=== PATIENT | female | born 1940 | race Caucasian/White ===

== ENCOUNTER 2018-04-13 11:26 | Emergency (ER) | payer MEDICARE, MEDICAID ==
[~2018-04-13] VITALS: Ht 172.7 cm; Wt 72.6 kg
[~2018-04-13 11:26] MED LIST: AMLO10TA6 PO; BUDE10.2 IH
--- NOTE | 2018-04-13 11:28 | NUR ---
BBRA FROM HOME C/O FEELING WEAK AFTER PLAYING [employer]. PLACED ON MONITOR. PT ALERT ABLE TO MAKE NEEDS KNOWN.
--- NOTE | 2018-04-13 11:58 | NUR ---
R AC 20G PLACED PATENT AND FLUSHING WELL. LABS DRAWN SENT TO LAB
[2018-04-13 12:19] LABS: BASOPHILS % (AUTO) 0.7 % (0.0-2.0); EOSINOPHILS % (AUTO) 10.2 % (0.0-6.0); HEMATOCRIT 39 % (33-45); HEMOGLOBIN 13.1 g/dL (11.5-14.8); LYMPHOCYTES # (AUTO) 1.4 /CMM (0.8-4.8); LYMPHOCYTES % (AUTO) 28.3 % (20.0-44.0); MEAN CORPUSCULAR HGB CONC 34 g/dl (31.0-36.0); MEAN CORPUSCULAR VOLUME 86 fL (82-100); MONOCYTES # (AUTO) 0.4 /CMM (0.1-1.30); MONOCYTES % (AUTO) 8.3 % (2.0-12.0); NEUTROPHILS # (AUTO) 2.8 /CMM (1.8-8.9); NEUTROPHILS % (AUTO) 52.5 % (43.0-81.0); PLATELET COUNT (AUTO) 248 /CMM (150-450); RDW COEFFICIENT OF VARIATION 14.1 (11.5-15.0); RED BLOOD CELL COUNT(AUTO) 4.51 MIL/uL (4.0-5.2); WHITE BLOOD COUNT (AUTO) 5.1 K/uL (4.3-11.0)
[2018-04-13 12:28] LABS: INR 0.92 (0.85-1.15)
[2018-04-13 12:29] LABS: ALANINE AMINOTRANSFERASE 19 U/L (12-78); ALKALINE PHOSPHATASE 69 U/L (46-116); ASPARTATE AMINOTRANSFERASE 21 U/L (15-37); BILIRUBIN,TOTAL 0.3 mg/dL (0.2-1.0); CALCIUM, SERUM 9.4 mg/dL (8.5-10.1); CARBON DIOXIDE 24 mmol/L (21-32); CHLORIDE 105 mmol/L (98-107); CREATININE 1.1 mg/dL (0.6-1.3); GLUCOSE 121 mg/dL (74-106); POTASSIUM 3.9 mmol/L (3.5-5.1); SODIUM SERUM 137 mmol/L (136-145); TOTAL PROTEIN, SERUM 8.1 g/dL (6.4-8.2); UREA NITROGEN, BLOOD 20 mg/dL (7-18)
[2018-04-13 12:31] LABS: TROPONIN I < 0.017 ng/mL (0.00-0.056)
[2018-04-13 13:59] LABS: APPEARANCE,URINE Clear (CLEAR); BILIRUBIN,URINE Negative (NEGATIVE); BLOOD, URINE Negative Ery/uL (NEGATIVE); COLOR,URINE Yellow (YELLOW); KETONES,URINE Negative (NEGATIVE); LEUKOCYTE ESTERASE ,URINE Negative (NEGATIVE); NITRITE, URINE Negative (NEGATIVE); PROTEIN,URINE Negative (NEGATIVE); UGLUCOSE Negative (NEGATIVE); UROBILINOGEN,URINE 0.2 EU/dL (0.2)
--- NOTE | 2018-04-13 14:00 | NUR ---
Patient discharged to home in stable condition. Written and verbal after care instructions given. Patient verbalizes understanding of instruction.
--- NOTE | 2018-04-13 14:00 | NUR ---
IV removed. Catheter intact and site benign. Pressure and 4x4 applied to site. No bleeding noted.
[2018-04-13 14:01] VITALS: BP 135/78
== END 2018-04-13 14:06 | disposition home or self-care (01) ==
LOC: ER 11:27
DX: R53.1 Weakness (principal); E11.9 Type 2 diabetes mellitus without complications; I10 Essential (primary) hypertension; I70.0 Atherosclerosis of aorta; J45.909 Unspecified asthma, uncomplicated; Z88.8 Allergy status to other drugs, medicaments and biological substances
CPT/HCPCS: 36415; 71045; 80053; 81001; 84484; 85025; 85730; 93005; 99285; A4606; 81000-TC; Z7610

== ENCOUNTER 2019-02-11 19:14 | Emergency (ER) | payer MEDICARE, MEDICAID ==
[~2019-02-11] VITALS: Ht 152.4 cm; Wt 71.7 kg
[~2019-02-11 19:14] MED LIST changes: -AMLO10TA6 PO; +AMLO10TA7 PO
[2019-02-11 19:28] VITALS: BP 153/75
[2019-02-11] MEDS ORDERED: KETOROLAC TROMETHAMINE 15 MG/ML VIAL ONE (19:47)
[2019-02-11] MEDS ORDERED: KETOROLAC TROMETHAMINE INJ 60 MG/2 ML VIAL IM ONE (20:00)
[2019-02-11] MEDS ORDERED: KETOROLAC TROMETHAMINE INJ 30 MG/ML VIAL IV ONE (20:00)
[2019-02-11] MEDS ORDERED: ONDANSETRON 4 MG TAB.RAPDIS SL ONE (21:00)
[2019-02-11] MEDS ORDERED: HYDROCODONE/APAP 5/325MG 1 EACH TABLET PO ONE (21:00)
[2019-02-11] MEDS ORDERED: HYDROCODONE/APAP 5/325MG 1 EACH TABLET ONE (21:01)
[2019-02-11] MEDS ORDERED: ONDANSETRON 4 MG TAB.RAPDIS ONE (21:02)
== END 2019-02-11 21:15 | disposition home or self-care (01) ==
LOC: ER 19:17
DX: M54.16 Radiculopathy, lumbar region (principal); E11.9 Type 2 diabetes mellitus without complications; I10 Essential (primary) hypertension; Z88.6 Allergy status to analgesic agent
CPT/HCPCS: 72131; 96372; 99284; J1885; Q0162

== ENCOUNTER 2019-03-08 04:18 | Emergency (ER) | payer MEDICARE, MEDICAID ==
[~2019-03-08] VITALS: Ht 152.4 cm; Wt 68.0 kg
[2019-03-08 04:25] VITALS: BP 196/85
[2019-03-08] MEDS ORDERED: MORPHINE SULFATE INJ 10 MG/ML DISP.SYRIN ONE (04:58)
[2019-03-08] MEDS ORDERED: MORPHINE SULFATE INJ 4 MG/ML DISP.SYRIN IM ONE (05:00)
--- NOTE | 2019-03-08 05:20 | NUR ---
PT REC'D MORPHINE IM. PT WAS INSTRUCTED NOT TO DRIVE HOME. PT WILL TAKE A TAXI HOME. AWARE. CALLED NURSING TOY MECHANIC RE: TAXI VOUCHER.
--- NOTE | 2019-03-08 05:33 | NUR ---
DR FARLEY IS AWARE OF PT'S BP PRIOR TO DC. PT OK'D TO BE D/C'D HOME. 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 PT'S PAIN IS 8/10. PT TO F/U WITH PMD RE: ELEVATED BP/HTN
== END 2019-03-08 05:34 | disposition home or self-care (01) ==
LOC: ER 04:18
DX: B02.29 Other postherpetic nervous system involvement (principal); G89.29 Other chronic pain; I10 Essential (primary) hypertension; E11.9 Type 2 diabetes mellitus without complications; Z88.6 Allergy status to analgesic agent
CPT/HCPCS: 96372; 99283; J2270

== ENCOUNTER 2019-03-11 09:24 | Emergency (ER) | payer MEDICARE, MEDICAID ==
[~2019-03-11] VITALS: Ht 152.4 cm; Wt 74.8 kg
[2019-03-11 09:30] VITALS: BP 145/75
[2019-03-11] MEDS ORDERED: GABAPENTIN 300 MG CAPSULE ONE (09:56)
[2019-03-11] MEDS ORDERED: GABAPENTIN 100 MG CAPSULE PO ONE (10:00)
--- NOTE | 2019-03-11 10:04 | NUR ---
Rx provided, Patient discharged to home in stable condition. Written and verbal after care instructions given. Patient verbalizes understanding of instruction.
== END 2019-03-11 10:05 | disposition home or self-care (01) ==
LOC: ER 09:26
DX: M79.2 Neuralgia and neuritis, unspecified (principal); I10 Essential (primary) hypertension; E11.9 Type 2 diabetes mellitus without complications; Z60.2 Problems related to living alone; Z88.6 Allergy status to analgesic agent

== ENCOUNTER 2023-04-05 18:26 | Inpatient (IN) | payer OTHER ==
[~2023-04-05] VITALS: Ht 152.4 cm; Wt 64.4 kg
[~2023-04-05 18:26] MED LIST changes: +AMLO-213 PO; -AMLO10TA7 PO
[2023-04-05] MEDS ORDERED: IV NS 0.9% 1,000 ML BAG IV ONE (20:30)
[2023-04-05 21:37] LABS: BASOPHILS % (AUTO) 0.2 % (0.0-2.0); EOSINOPHILS % (AUTO) 0.2 % (0.0-6.0); HEMATOCRIT 36 % (33-45); HEMOGLOBIN 12.6 g/dL (11.5-14.8); LYMPHOCYTES # (AUTO) 0.7 K/uL (0.8-4.8); LYMPHOCYTES % (AUTO) 10.2 % (20.0-44.0); MEAN CORPUSCULAR HGB CONC 35 g/dl (31.0-36.0); MEAN CORPUSCULAR VOLUME 83 fL (82-100); MONOCYTES # (AUTO) 0.6 K/uL (0.1-1.30); MONOCYTES % (AUTO) 9.3 % (2.0-12.0); NEUTROPHILS # (AUTO) 5.3 K/uL (1.8-8.9); NEUTROPHILS % (AUTO) 80.1 % (43.0-81.0); PLATELET COUNT (AUTO) 329 K/uL (150-450); WHITE BLOOD COUNT (AUTO) 6.7 K/uL (4.3-11.0)
[2023-04-05 21:52] LABS: ALANINE AMINOTRANSFERASE 29 U/L (12-78); ALBUMIN 4.1 g/dL (3.4-5.0); ALKALINE PHOSPHATASE 74 U/L (46-116); ASPARTATE AMINOTRANSFERASE 26 U/L (15-37); BILIRUBIN,DIRECT 0.2 mg/dL (0.0-0.2); BILIRUBIN,TOTAL 0.8 mg/dL (0.2-1.0); CALCIUM, SERUM 9.3 mg/dL (8.5-10.1); CARBON DIOXIDE 25 mmol/L (21-32); CREATININE 0.7 mg/dL (0.6-1.3); GLUCOSE 125 mg/dL (74-106); TOTAL PROTEIN, SERUM 7.7 g/dL (6.4-8.2); UREA NITROGEN, BLOOD 15 mg/dL (7-18)
[2023-04-05 21:54] LABS: SODIUM SERUM 114 mmol/L (136-145)
[2023-04-05 21:55] LABS: CHLORIDE 78 mmol/L (98-107); POTASSIUM 2.6 mmol/L (3.5-5.1)
[2023-04-05 21:57] LABS: THYROID STIMULATING HORMONE 2.361 uIU/mL (0.358-3.74)
[2023-04-05] MEDS ORDERED: POTASSIUM CL. PREMIX PERIPHER. 100 ML ONE ×2 (22:22→23:36)
[2023-04-05] MEDS: POTASSIUM CL. PREMIX PERIPHER. 50 ML IV SCH ×2 (22:37→23:37)
[2023-04-05 23:09] LABS: BILIRUBIN,URINE NEGATIVE (NEGATIVE); COLOR,URINE YELLOW (YELLOW); LEUKOCYTE ESTERASE ,URINE TRACE (NEGATIVE); NITRITE, URINE NEGATIVE (NEGATIVE); PROTEIN,URINE TRACE mg/dl (NEGATIVE); UGLUCOSE NEGATIVE (NEGATIVE); UROBILINOGEN,URINE 0.2 EU/dL (0.2)
[2023-04-05 23:11] LABS: BACTERIA,URINE Few /HPF (None Seen); SQUAMOUS EPITHELIAL CELL,UR Few /HPF (None Seen)
[2023-04-06] VITALS (16 sets, daily range): BP systolic 99–135; BP diastolic 43–101
[2023-04-06] MEDS ORDERED: CLONIDINE HCL 0.1 MG TABLET PO PRN
[2023-04-06] MEDS ORDERED: ACETAMINOPHEN 325 MG TABLET PO PRN
[2023-04-06] MEDS ORDERED: ONDANSETRON HCL/PF 4 MG/2 ML VIAL IV PRN
[2023-04-06] MEDS ORDERED: IV D5/ 0.9% NACL 1,000 ML IV PRN
[2023-04-06] MEDS ORDERED: ALBUTEROL FS 2.5 MG/0.5 ML VIAL.NEB NEB PRN
[2023-04-06] MEDS: POTASSIUM CL. PREMIX PERIPHER. 50 ML IV SCH ×5 (00:38→04:30)
[2023-04-06] MEDS ORDERED: POTASSIUM CL. PREMIX PERIPHER. 100 ML ONE (01:12)
[2023-04-06] MEDS ORDERED: POTASSIUM CL. PREMIX PERIPHER. 50 ML ONE (02:29)
[2023-04-06 05:03] LABS: BASOPHILS % (AUTO) 0.2 % (0.0-2.0); EOSINOPHILS % (AUTO) 0.5 % (0.0-6.0); HEMATOCRIT 37 % (33-45); LYMPHOCYTES # (AUTO) 1.3 K/uL (0.8-4.8); MEAN CORPUSCULAR HGB CONC 35 g/dl (31.0-36.0); MEAN CORPUSCULAR VOLUME 84 fL (82-100); MONOCYTES # (AUTO) 0.8 K/uL (0.1-1.30); MONOCYTES % (AUTO) 10.5 % (2.0-12.0); NEUTROPHILS # (AUTO) 5.3 K/uL (1.8-8.9); NEUTROPHILS % (AUTO) 70.8 % (43.0-81.0); PLATELET COUNT (AUTO) 330 K/uL (150-450); RED BLOOD CELL COUNT(AUTO) 4.39 MIL/uL (4.0-5.2); WHITE BLOOD COUNT (AUTO) 7.4 K/uL (4.3-11.0)
[2023-04-06 05:12] LABS: CALCIUM, SERUM 8.9 mg/dL (8.5-10.1); CARBON DIOXIDE 24 mmol/L (21-32); CHLORIDE 84 mmol/L (98-107); CREATININE 0.6 mg/dL (0.6-1.3); GLUCOSE 120 mg/dL (74-106); MAGNESIUM 1.7 mg/dL (1.8-2.4); POTASSIUM 3.1 mmol/L (3.5-5.1); UREA NITROGEN, BLOOD 10 mg/dL (7-18)
[2023-04-06 05:15] LABS: SODIUM SERUM 116 mmol/L (136-145)
[2023-04-06] MEDS ORDERED: POTASSIUM CHLORIDE 20 MEQ TAB.PRT.SR PO ONE ×4 (06:00→13:00)
[2023-04-06] MEDS: IV NS 0.9% 1,000 ML IV PRN ×3 (06:00→21:01)
[2023-04-06] MEDS ORDERED: CEFTRIAXONE 1 G in IV D5W 50 ML IV SCH ×2 (07:00→07:05)
[2023-04-06] MEDS: CEFTRIAXONE 1 G in IV D5W 50 ML IV SCH (08:33)
[2023-04-06] MEDS: PANTOPRAZOLE 40 MG VIAL IV SCH (08:34)
[2023-04-06] MEDS: AMLODIPINE BESYLATE 10 MG TABLET PO SCH ×2 (08:34→08:36)
[2023-04-06] MEDS: ENOXAPARIN SODIUM 40 MG/0.4 ML DISP.SYRIN SQ SCH (08:35)
[2023-04-06] MEDS: Magnesium 1GM/D5W 100ML PREMIX 100 ML IV SCH ×2 (09:03→10:47)
[2023-04-06] MEDS ORDERED: MONT10TA22 PO (10:16)
[2023-04-06] MEDS ORDERED: METF-881 PO (10:16)
[2023-04-06] MEDS ORDERED: CHLO25TA2 PO (10:16)
[2023-04-06] MEDS ORDERED: FLUT1BLS IH (10:16)
[2023-04-06] MEDS ORDERED: ATOR10TA PO (10:16)
[2023-04-06] MEDS: ESCITALOPRAM OXALATE (10 MG) 10 MG TABLET PO SCH (10:51)
[2023-04-06] MEDS ORDERED: IV Sodium Chloride 3% 500 ML 500 ML IV ONE (11:00)
[2023-04-06 12:27] LABS: CALCIUM, SERUM 8.9 mg/dL (8.5-10.1); CREATININE 0.7 mg/dL (0.6-1.3); POTASSIUM 3.4 mmol/L (3.5-5.1)
[2023-04-06 12:30] LABS: THYROID STIMULATING HORMONE 1.432 uIU/mL (0.358-3.74)
[2023-04-06] MEDS ORDERED: SODIUM CHLORIDE 1000 MG TABLET PO ONE (13:00)
[2023-04-06] MEDS: SODIUM CHLORIDE 1000 MG TABLET PO SCH ×2 (13:02→16:05)
[2023-04-06 16:58] LABS: CALCIUM, SERUM 8.2 mg/dL (8.5-10.1); CREATININE 0.7 mg/dL (0.6-1.3); POTASSIUM 3.6 mmol/L (3.5-5.1)
[2023-04-06] MEDS: ALBUTEROL FS 2.5 MG/0.5 ML VIAL.NEB NEB SCH (20:16)
[2023-04-06] MEDS: BUDESONIDE RESPULE INH 0.5 MG/2 ML AMPUL.NEB NEB SCH (20:16)
[2023-04-07] VITALS (12 sets, daily range): BP systolic 89–136; BP diastolic 48–80
[2023-04-07] MEDS: ALBUTEROL FS 2.5 MG/0.5 ML VIAL.NEB NEB SCH ×4 (01:38→20:17)
[2023-04-07 05:06] LABS: BASOPHILS % (AUTO) 0.5 % (0.0-2.0); EOSINOPHILS % (AUTO) 2.3 % (0.0-6.0); HEMATOCRIT 33 % (33-45); HEMOGLOBIN 11.5 g/dL (11.5-14.8); LYMPHOCYTES # (AUTO) 1.4 K/uL (0.8-4.8); LYMPHOCYTES % (AUTO) 24.4 % (20.0-44.0); MEAN CORPUSCULAR HGB CONC 35 g/dl (31.0-36.0); MEAN CORPUSCULAR VOLUME 85 fL (82-100); MONOCYTES # (AUTO) 0.7 K/uL (0.1-1.30); MONOCYTES % (AUTO) 11.3 % (2.0-12.0); NEUTROPHILS # (AUTO) 3.6 K/uL (1.8-8.9); NEUTROPHILS % (AUTO) 61.5 % (43.0-81.0); PLATELET COUNT (AUTO) 263 K/uL (150-450); RED BLOOD CELL COUNT(AUTO) 3.87 MIL/uL (4.0-5.2); WHITE BLOOD COUNT (AUTO) 5.9 K/uL (4.3-11.0)
[2023-04-07 05:45] LABS: CALCIUM, SERUM 8.5 mg/dL (8.5-10.1); CARBON DIOXIDE 24 mmol/L (21-32); CHLORIDE 92 mmol/L (98-107); CREATININE 0.6 mg/dL (0.6-1.3); GLUCOSE 105 mg/dL (74-106); MAGNESIUM 2.5 mg/dL (1.8-2.4); POTASSIUM 3.6 mmol/L (3.5-5.1); SODIUM SERUM 124 mmol/L (136-145); UREA NITROGEN, BLOOD 11 mg/dL (7-18)
[2023-04-07] MEDS: CEFTRIAXONE 1 G in IV D5W 50 ML IV SCH (06:37)
[2023-04-07] MEDS: IV NS 0.9% 1,000 ML IV PRN (06:37)
[2023-04-07] MEDS: BUDESONIDE RESPULE INH 0.5 MG/2 ML AMPUL.NEB NEB SCH ×2 (07:43→20:16)
[2023-04-07] MEDS: PANTOPRAZOLE 40 MG VIAL IV SCH (08:20)
[2023-04-07] MEDS: ESCITALOPRAM OXALATE (10 MG) 10 MG TABLET PO SCH (08:21)
[2023-04-07] MEDS: SODIUM CHLORIDE 1000 MG TABLET PO SCH ×3 (08:21→16:33)
[2023-04-07] MEDS: ENOXAPARIN SODIUM 40 MG/0.4 ML DISP.SYRIN SQ SCH (08:29)
[2023-04-07] MEDS: AMLODIPINE BESYLATE 10 MG TABLET PO SCH (08:34)
[2023-04-07] MEDS ORDERED: IV NS 0.9% 250 ML IV ONE (14:00)
[2023-04-08] MEDS: ALBUTEROL FS 2.5 MG/0.5 ML VIAL.NEB NEB SCH ×5 (00:49→19:53)
[2023-04-08 04:00] VITALS: BP 159/68
[2023-04-08] MEDS: BUDESONIDE RESPULE INH 0.5 MG/2 ML AMPUL.NEB NEB SCH ×3 (07:30→19:53)
[2023-04-08 07:43] LABS: CREATININE 0.6 mg/dL (0.6-1.3); POTASSIUM 3.3 mmol/L (3.5-5.1)
[2023-04-08] MEDS ORDERED: POTASSIUM CHLORIDE 20 MEQ TAB.PRT.SR PO ONE (08:30)
[2023-04-08] MEDS: CEFTRIAXONE 1 G in IV D5W 50 ML IV SCH (08:40)
[2023-04-08] MEDS: ESCITALOPRAM OXALATE (10 MG) 10 MG TABLET PO SCH (08:41)
[2023-04-08] MEDS: ENOXAPARIN SODIUM 40 MG/0.4 ML DISP.SYRIN SQ SCH (08:42)
[2023-04-08] MEDS: SODIUM CHLORIDE 1000 MG TABLET PO SCH ×3 (08:43→17:35)
[2023-04-08] MEDS ORDERED: PANTOPRAZOLE 40 MG TABLET.DR PO SCH (09:00)
[2023-04-08] MEDS ORDERED: AMLODIPINE BESYLATE 2.5 MG TABLET PO SCH (09:00)
[2023-04-08] MEDS ORDERED: AMLODIPINE BESYLATE 10 MG TABLET PO SCH (09:00)
[2023-04-08] MEDS ORDERED: AMLODIPINE BESYLATE 5 MG TABLET PO SCH (09:00)
[2023-04-08 12:00] VITALS: BP 156/52
[2023-04-08 16:00] VITALS: BP 109/47
[2023-04-08 20:00] VITALS: BP 123/56
[2023-04-09] MEDS: ALBUTEROL FS 2.5 MG/0.5 ML VIAL.NEB NEB SCH ×2 (01:46→08:25)
[2023-04-09 04:00] VITALS: BP 128/70
[2023-04-09 07:14] LABS: CALCIUM, SERUM 8.2 mg/dL (8.5-10.1); CREATININE 0.8 mg/dL (0.6-1.3); POTASSIUM 3.6 mmol/L (3.5-5.1)
[2023-04-09 08:00] VITALS: BP 140/68
[2023-04-09] MEDS: BUDESONIDE RESPULE INH 0.5 MG/2 ML AMPUL.NEB NEB SCH (08:24)
[2023-04-09] MEDS ORDERED: CEPH500C2 PO (09:06)
[2023-04-09] MEDS ORDERED: ESCI10TA PO (09:06)
[2023-04-09] MEDS ORDERED: AMLO-212 PO (09:06)
== END 2023-04-09 12:30 | disposition home health service (06) | DRG 644 ==
LOC: ER 18:26 → ICU 04-06 05:36 → MEDSG1 04-07 09:15
PROVIDERS: ADMIT Internal Medicine; ATTEND Internal Medicine
PROC: 05HB33Z Insertion of Infusion Device into Right Basilic Vein, Percutaneous Approach (ICD-10-PCS; principal; 2023-04-06)
DX: E22.2 Syndrome of inappropriate secretion of antidiuretic hormone (principal); N39.0 Urinary tract infection, site not specified; E86.0 Dehydration; E86.1 Hypovolemia; F32.9 Major depressive disorder, single episode, unspecified; J45.909 Unspecified asthma, uncomplicated; E87.6 Hypokalemia; E83.42 Hypomagnesemia; E11.9 Type 2 diabetes mellitus without complications; I10 Essential (primary) hypertension; F32.A Depression, unspecified; Z79.51 Long term (current) use of inhaled steroids; Z79.899 Other long term (current) drug therapy; Z88.4 Allergy status to anesthetic agent; Z20.822 Contact with and (suspected) exposure to COVID-19
CPT/HCPCS: 36415; 70450-TC; 71045-TC; 80048-TC; 80076-TC; 81001; 82533; 82962-TC; 83735-TC; 84132-TC; 84295-TC; 84300-TC; 84443-TC; 84484-TC; 85025-TC; 87081-TC; 87086-TC; 94799-TC; 97112-TC; 97116-TC; 97530-TC; A4223; C9113; C9803; G0378; J0696; J1650; J3475; J3480; J7030; J7050; J7060